=== PATIENT | male | born 1955 | race Caucasian/White ===

== ENCOUNTER 2019-01-24 09:09 | Emergency (ER) | payer OTHER ==
[2019-01-24] MEDS ORDERED: Lidocaine 2% PF 5 ML VIAL ONE (09:21)
[2019-01-24] MEDS ORDERED: Adacel (T-DAP) 0.5 ML SYRINGE ONE (09:27)
[2019-01-24] MEDS ORDERED: Lidocaine 2% w/ Epi 1:200K 10 ML VIAL ONE (09:48)
[2019-01-24] MEDS ORDERED: Bacitracin 1 PK ONE (10:10)
[2019-01-24] MEDS ORDERED: Cephalexin 500 MG CAP ONE (10:25)
--- NOTE | 2019-01-24 19:19 | RAD ---
RIGHT HAND 01/24/19 Three views show a fishhook impaled within the soft tissues just lateral to the second metacarpal hea d. No fracture was seen. IMPRESSION: Foreign body as noted. POS: HOME
== END 2019-01-24 10:26 | disposition home or self-care (01) ==
LOC: BURERS 09:09
DX: S60.450A Superficial foreign body of right index finger, initial encounter (principal); W45.8XXA Other foreign body or object entering through skin, initial encounter
CPT/HCPCS: 90471; 90715; 96372; J2001